=== PATIENT | female | born 1995 | race Two or more races ===

== ENCOUNTER 2016-12-15 04:11 | Emergency (ER) | payer SELFPAY | END 2016-12-15 04:55 | disposition home or self-care (01) | LOC: CED 04:11 | DX: O99.89 Other specified diseases and conditions complicating pregnancy, childbirth and the puerperium (principal); H66.92 Otitis media, unspecified, left ear; Z3A.28 28 weeks gestation of pregnancy | CPT/HCPCS: 99283 ==